=== PATIENT | female | born 1990 | race Caucasian/White ===

== ENCOUNTER 2024-02-20 11:50 | Outpatient (CLI) | payer BC, SELFPAY ==
--- NOTE | 2024-02-20 12:15 | CRLHL7_ITS ---
For Patients: As a result of the Century Cures Act, medical imaging exams and procedure reports are released immediately into your electronic medical record. You may view this report before your referring provider. If you have questions, please contact your health care provider. INDICATION: Upper abdominal pain COMPARISON: none TECHNIQUE: Real time aburto scale imaging and color Doppler analysis was performed of the right upper quadrant. FINDINGS: The patient`s liver is of normal size and has uniform echogenicity. There is a normal appearance of the hepatic IVC and proximal abdominal aorta. There is no evidence of ascites. The gallbladder is of normal size and there is no evidence of intraluminal stones or sludge. The gallbladder wall measures 2.3 mm in thickness. The common bile duct is of normal size and measures 3.1 mm in diameter at the level of the julieta hepatis. The pancreas appears normal. Right renal stone is present measuring 3 millimeters. No hydronephrosis. The right kidney measures 9.9 cm in length. IMPRESSION: 3 millimeter right kidney stone. Remainder unremarkable. Dictated by Krzysztof Ureña MD @ 02/21/2024 5:43:32 AM (Electronically Signed)
== END 2024-02-20 11:51 | disposition home or self-care (01) ==
LOC: US 11:50
PROVIDERS: Visit Provider Physician Assistant
DX: R10.10 Upper abdominal pain, unspecified (principal); N20.0 Calculus of kidney; R79.89 Other specified abnormal findings of blood chemistry
CPT/HCPCS: 76705